=== PATIENT | male | born 1970 | race Caucasian/White ===

== ENCOUNTER 2021-05-24 03:37 | Emergency (ER) | payer OTHER ==
[2021-05-24] MEDS ORDERED: MEDROL DOSEPAK 24 MG PO (09:09)
[2021-05-24] MEDS ORDERED: TORADOL 10 MG T10 MG PO (09:09)
[2021-05-24] MEDS ORDERED: BACLOFEN10 MG PO (09:09)
== END 2021-05-24 09:35 | disposition home or self-care (01) ==
LOC: ER1 03:37
DX: M54.5 Low back pain (principal); E11.9 Type 2 diabetes mellitus without complications; I10 Essential (primary) hypertension
CPT/HCPCS: 72131; 73502; 82962; 96372; 99284; J1885; J2360

== ENCOUNTER 2021-08-06 00:32 | Emergency (ER) | payer SELFPAY ==
[~2021-08-06 00:32] MED LIST: BACLOFEN10 MG PO; MEDROL DOSEPAK 24 MG PO; TORADOL 10 MG T10 MG PO
[2021-08-06 01:37] LABS: HEMOGLOBIN 16.3 gm/dl (14.0-17.5); RED BLOOD COUNT 5.4 M/UL (4.20-5.50); WHITE BLOOD COUNT 10.6 K/UL (4.5-11.0)
[2021-08-06 01:59] LABS: BUN/CREATININE RATIO 36 (0-10)
[2021-08-06] MEDS ORDERED: LISINOPRIL10 MG PO (02:43)
[2021-08-06] MEDS ORDERED: GLUCOPHAGE 500500 MG PO (02:43)
== END 2021-08-06 02:55 | disposition home or self-care (01) ==
LOC: ER1 00:32
PROVIDERS: Physician Assistant Medical
DX: R04.0 Epistaxis (principal); E11.9 Type 2 diabetes mellitus without complications; I10 Essential (primary) hypertension
CPT/HCPCS: 80053; 85025; 85610; 93005; 96374; 99283